=== PATIENT | male | born 1975 | race Caucasian/White ===

== ENCOUNTER 2019-01-28 18:09 | Observation (INO) | payer SELFPAY ==
[2019-01-28 18:36] LABS: #Eosinphils 0.2 thou/uL (0.0-0.7); #Lymphocytes 1.5 thou/uL (1.20-3.40); #Monocytes 0.5 thou/uL (0.11-0.59); #Neutrophils 4.9 thou/uL (1.40-6.50); %Basophils 0.3 % (0.0-1.0); %Eosinophils 3.1 % (0.0-10.0); %Lymphocytes 21.6 % (21.0-51.0); %Monocytes 6.3 % (0.0-10.0); %Neutrophils 68.7 % (42.0-75.0); Hemoglobin 11.7 g/dL (14.0-18.0); Mean Corpuscular HGB CONC 33.2 g/dL (32.0-36.0); Mean Corpuscular Hemoglobin 28.8 pg (27.0-31.0); Mean Corpuscular Volume 86.8 fL (78.0-98.0); Mean Platelet Volume 5.5 fL (7.4-10.4); Platelet Count 421 thou/uL (130-400); RBC Distribution Width 11.8 % (11.5-14.5); Red Blood Cell (RBC) Count 4.05 mill/uL (4.70-6.10); White Blood Cell (WBC) Count 7.1 thou/uL (4.8-10.8)
[2019-01-28] MEDS ORDERED: Nitroglycerin 0.4 MG TAB 1 EACH ONE (18:36)
[2019-01-28] MEDS ORDERED: Nitroglycerin 2% Ointment 1 INCH/1 GM Packet ONE (18:36)
[2019-01-28] MEDS ORDERED: Aspirin Chewable 81 MG TAB ONE (18:36)
--- NOTE | 2019-01-28 18:36 | RAD ---
Exam: Chest one view HISTORY:Chest pain Comparison: None FINDINGS: Cardiac silhouette: Normal Aorta: Unremarkable Pulmonary vessels: Normal Costophrenic angles: Clear LUNGS: No masses or consolidation. Pneumothorax: None Osseous abnormalities: None IMPRESSION: No acute cardiopulmonary process.
[2019-01-28 18:56] LABS: ALT (SGPT) 22 U/L (8-55); AST (SGOT) 20 U/L (5-34); Albumin 4.1 g/dL (3.5-5.0); Alkaline Phosphatase 88 U/L (40-110); Anion Gap 12 mmol/L (10-20); BUN (Urea Nitrogen) 12 mg/dL (8.9-20.6); Bilirubin, Total 0.3 mg/dL (0.2-1.2); CK (CPK) 94 U/L (30-200); Calc. Creatinine Clearance 0 mL/min (70-130); Calcium 9.3 mg/dL (7.8-10.44); Carbon Dioxide 27 mmol/L (22-29); Chloride 107 mmol/L (98-107); Estimated GFR-MDRD Greater than 90; Globulin 3.2 g/dL (2.4-3.5); Glucose 111 mg/dL (70-105); Potassium 4.3 mmol/L (3.5-5.1); Protein, Total 7.3 g/dL (6.0-8.3); Sodium 142 mmol/L (136-145)
[2019-01-28] MEDS ORDERED: Morphine 4 MG/ML VIAL ONE (19:33)
[2019-01-28] MEDS ORDERED: Ondansetron PF 4 MG/2 ML Vial ONE (19:33)
--- NOTE | 2019-01-28 20:43 | PDOC.FPRHP ---
- History of Present Illness Chief Complaint: Chest pain History of Present Illness: 43-year-old male smoker, with a past medical history of an NM in 2015, requiring to stent placement, hypertension, and hyperlipidemia. Presented to the ER from out of town with chest pain. The patient reported chest pain that started earlier this afternoon while on a bus traveling back to [place]. This chest pain was centrally located, radiating down the left arm and left jaw. Associated with the chest pain was nausea, diaphoresis, and shortness of breath intermittent. Patients chest pain was constant, rated an eight out of 10 and intensity, and pressure like in character. Patient denied any vomiting or heartburn/indigestion feelings. The chest pain came on at rest, was worsened by nothing, and alleviated by two nitro that he took before coming to the ER. When I evaluated the patient in the emergency department he rated the chest pain at two out of 10. Three weeks ago the patient was hospitalized in [place], [place], for similar symptoms. He was found to have an elevated troponin which trended down. The patient left AMA because his grandmother that night. He was scheduled to receive a Cath that next morning, but left before having it performed. Patient states he never followed up after this incident. Pt reports a stress test with reaction to adenosine causing hives and "terrible feeling," that he does not want to undergo again. Patient was given three nitroglycerin, 325 aspirin along with morphine in the emergency department which alleviated his chest pain. EKG showed sinus tachycardia and his initial troponin was 0.027. Neg chest x-ray. - Allergies/Adverse Reactions Allergies Allergy/AdvReac Type Severity Reaction Status Date / Time adenosine Allergy Short of Verified 01/28/19 22:08 Breath fentanyl Allergy Severe Verified 01/28/19 22:08 Hives Penicillins Allergy Hives Verified 01/28/19 22:08 - Home Medications Medication Instructions Recorded Confirmed Type Aspirin [Adult Low Dose Aspirin EC] 81 mg PO DAILY 01/28/19 01/28/19 History Atorvastatin Calcium [Lipitor] 20 mg PO HS 01/28/19 01/28/19 History Cyclobenzaprine [Flexeril] 10 mg PO TID PRN 01/28/19 01/28/19 History Metoprolol Tartrate [Lopressor] 25 mg PO BID 01/28/19 01/28/19 History Pantoprazole [Protonix] 40 mg PO BID 01/28/19 01/28/19 History oxyCODONE HCl/Acetaminophen 1 - 2 tablet PO Q4HR PRN 01/28/19 01/28/19 History [Percocet] - History PMHx: CAD with an NM in 2014 (X2 stent placements), GERD, HTN, HLD, CHF with reduced EF, ABDIEL, Protal vein thrombosis (X2 episodes one 5 yrs ago and the other 10 years ago, was on lovenox for a short period after both episodes) PSHx: cholecystectomy in 2016, R inguinal hernia repair as a child FHx: Father dies of NM at age 52, Grandmother CAD and lunch CA, Grandfather brain CA Social: Smokes 1 PPD for the past 5 years. Smoked up to 4 ppd for 15 years before that. Denies etoh or drug use. Works in [employer]. - Review of Systems General: denies: fever/chills, weight/appetite/sleep changes ENT: denies: nasal congestion Respiratory: reports: shortness of breath, exercise intolerance. denies: cough Cardiovascular: reports: chest pain, palpitation, edema, paroxysmal nocturnal dyspnea, orthopnea (immediately after lying flat.) Gastrointestinal: reports: nausea. denies: vomiting, diarrhea, abdominal pain, GI bleeding Skin: denies: rashes Musculoskeletal: reports: pain (chronic low back pain), arthritis/arthralgias ( chronic knee pain) Neurological: denies: syncope, seizure - Vital signs BP: 116/70 HR: 88 RR: 18 Tmax: 98.2 Pox: 99% on RA Wt: 128 kg - Physical Exam Constitutional: NAD, awake, alert and oriented, well developed HEENT: normocephalic and atraumatic, PERRLA, EOMI, conjunctiva clear, no scleral icterus, grossly normal vision, grossly normal hearing, MMM, oropharynx clear Neck: supple, FROM, trachea midline, no LAD, no JVD Chest: no-tender to palpation, no lesions Heart: RRR, normal S1/S2 (distant, but audible heart sounds.), no murmurs/rubs/ gallops, pulses present -Heart: BLE 2+ pitting edema Lungs: CTAB (deminished breath sounds thorughout all lung de dios.), no respiratory distress, good air movement, no rales/rhonchi, no wheezing Abdomen: soft, non-tender, bowel sounds present, no masses/distention -Abdomen: obese. Musculoskeletal: normal structure, normal tone, ROM grossly normal Neurological: no focal deficit, normal sensation Skin: no rash/lesions, good turgor, capillary refill <2 seconds, no jaundice Heme/Lymphatic: no unusual bruising or bleeding, no purpura, no petechia, no LAD Psychiatric: normal mood and affect, good judgment and insight, intact recent and remote memory FMR H&P: Results - Labs Result Diagrams: 01/28/19 18:28 01/28/19 18:28 Lab results: WBC 7.1 thou/uL (4.8-10.8) 01/28/19 18:28 Hgb 11.7 g/dL (14.0-18.0) L 01/28/19 18:28 Hct 35.2 % (42.0-52.0) L 01/28/19 18:28 MCV 86.8 fL (78.0-98.0) 01/28/19 18:28 Plt Count 421 thou/uL (130-400) H 01/28/19 18:28 Neutrophils % 68.7 % (42.0-75.0) 01/28/19 18:28 Sodium 142 mmol/L (136-145) 01/28/19 18:28 Potassium 4.3 mmol/L (3.5-5.1) 01/28/19 18:28 Chloride 107 mmol/L (98-107) 01/28/19 18:28 Carbon Dioxide 27 mmol/L (22-29) 01/28/19 18:28 BUN 12 mg/dL (8.9-20.6) 01/28/19 18:28 Creatinine 0.78 mg/dL (0.7-1.3) 01/28/19 18:28 Glucose 111 mg/dL (70-105) H 01/28/19 18:28 Calcium 9.3 mg/dL (7.8-10.44) 01/28/19 18:28 Total Bilirubin 0.3 mg/dL (0.2-1.2) 01/28/19 18:28 AST 20 U/L (5-34) 01/28/19 18:28 ALT 22 U/L (8-55) 01/28/19 18:28 Alkaline Phosphatase 88 U/L (40-110) 01/28/19 18:28 Creatine Kinase 94 U/L (30-200) 01/28/19 18:28 Serum Total Protein 7.3 g/dL (6.0-8.3) 01/28/19 18:28 Albumin 4.1 g/dL (3.5-5.0) 01/28/19 18:28 Laboratory Tests 01/28/19 01/28/19 01/28/19 18:28 18:28 18:28 Hgb 11.7 L Hct 35.2 L Troponin I 0.027 B-Natriuretic Peptide 17.5 01/28/19 21:26 Hgb Hct Troponin I 0.017 B-Natriuretic Peptide - EKG Interpretation EKG: Sinus Tach at 102 bpm. - Radiology Interpretation Chest x-ray Status: report reviewed by me (no acute cardiopulmonary process) FMR H&P: A/P - Problem List (1) Stable angina Current Visit: Yes Status: Acute Code(s): I20.8 - OTHER FORMS OF ANGINA PECTORIS (2) ABDIEL (obstructive sleep apnea) Current Visit: Yes Status: Chronic Code(s): G47.33 - OBSTRUCTIVE SLEEP APNEA (ADULT) (PEDIATRIC) (3) CAD (coronary artery disease) Current Visit: Yes Status: Chronic Code(s): I25.10 - ATHSCL HEART DISEASE OF [place] CORONARY ARTERY W/O ANG PCTRS (4) HTN (hypertension) Current Visit: Yes Status: Chronic Code(s): I10 - ESSENTIAL (PRIMARY) HYPERTENSION (5) GERD (gastroesophageal reflux disease) Current Visit: Yes Status: Chronic Code(s): K21.9 - GASTRO-ESOPHAGEAL REFLUX DISEASE WITHOUT ESOPHAGITIS (6) CHF (congestive heart failure) Current Visit: Yes Status: Chronic Code(s): I50.9 - HEART FAILURE, UNSPECIFIED (7) HLD (hyperlipidemia) Current Visit: Yes Status: Chronic Code(s): E78.5 - HYPERLIPIDEMIA, UNSPECIFIED (8) Normocytic anemia Current Visit: Yes Status: Chronic Code(s): D64.9 - ANEMIA, UNSPECIFIED - Plan 43 y/o M admitted to [facility] for further evaluation and treatment of Typical Chest Pain to rule out ACS. 1. Stable Angina - typical chest pain, central, pressure in character, radiates L arm/jaw, alleviated with nitro - TTE ordered, pt reports last echo 2 years ago. 35% EF - Pt reports allergy to adenosine with hives and palpitations. Will further discuss risk, benefit ration of Cardiolyte stress test - Trend trops. 1st trop 0.027 - EKG sinus Tach at 102 bpm. - PRN nitro, 325 mg ASA daily - Heart Score of 4 - No current CP, will consider heparin drip if CP returns - Possible Stress Test imaging if pt can tolerate procedure due to allergy to adenosine and OA or knee/DJD of back. 2. Hx of CAD, S/P 2 stents - May 2014, [place] - continue ASA, hold metoprolol 3. Hx of CHF - TTE ordered here. Hx of reduced EF - Prior EF of 35%, X2 years ago per patient. - Hold metoprolol until decision made for stress test imaging 4. Hx of HTN, well controlled - BP 116/70 - Only on metoprolol, stopped lisinopril 2/2 dry cough SE. 5. Hx of ABDIEL - CPAP QHS 6. GERD - Pt has a hx of GERD, ordered pepcid bid 7. Hx of HLD - Continue lipitor 20 mg daily 8. Normocytic Anemia - Ordered Iron, B12, Folate, TIBC and ferritin for workup. Code Status: full code DVT ppx: SCD's Diet: NPO at midnight Dispo: Admitted to tele obs for ACS rule out. Anticipate <2 days FMR H&P: Upper Level - Pertinent history 43 y/o M PMHx CAD, ABDIEL, HTN, HLD presents to the ED with chest pain. He reports he was on a bus and started having substernal chest pain radiating to his left neck and arm with associated diaphoresis. He took two of his nitro and they helped a little, but did not fully resolve the pain. By the time he got to the ED he was still having mild pain and this resolved completely with the nitro paste. He reports a prior h/o NM and has had stress tests before, but had a negative reaction to the adenosine so he would not like that again. He reports a h/o CHF with last echo about 2 years ago showing EF around 35%. He reports he has to sleep on 4 pillows at night and he has PND at times. - Pertinent findings Vitals: BP: 117/78, Pulse: 104, Resp: 22, Pain: 6, O2 sat: 100 on Room Air, Temp 98.2 PE: Gen - alert, oriented, NAD CV - RRR, no murmurs Lungs - CTAB, no wheezes Abd - protuberant, soft, NTTP Ext - trace pitting edema to mid-jade bilaterally Labs: Hb 11.7, Platelet 421, Trop 0.027, CXR - no acute process - Plan Date/Time: 01/28/192042 I, Ekta Mariee MD, PGY-3, have evaluated this patient and agree with findings/ plan as outlined by management internship resident. Pertinent changes/additions are listed here. 1. Anginal chest pain Pt with several risk factors and history concerning for cardiac cause. EKG with sinus tachycardia. Heart score 3. Initial troponin negative. -Will obs on telemetry -Trend trops -NPO after midnight and consider stress vs cardiology consult if pt unable to tolerate stress test -Echo -Aspirin -Nitro prn -FLP 2. CHF Pt reports EF 35% 2 years ago. Currently having symptoms that are likely 2/2 CHF -Will repeat echo -Continue home meds, pt reports no longer on ACEi due to cough, will consider ARB pending echo results 3. ABDIEL -Continue home CPAP 4. HTN -Continue home meds 5. GERD -Continue home meds 6. 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
[2019-01-28] MEDS ORDERED: Nitroglycerin 0.4 MG TAB (25 Tab Bottle) SL PRN (21:17)
[2019-01-28 21:55] VITALS: BMI 39.4
[2019-01-28 21:57] LABS: Troponin I 0.017 ng/mL (< 0.028)
[2019-01-28] MEDS ORDERED: Ondansetron ODT 4 MG TAB PO PRN (22:33)
[2019-01-28] MEDS: Cyclobenzaprine 10 MG TAB PO PRN ×2 (23:32→23:35)
[2019-01-28] MEDS: Nicotine 14 MG PATCH TD SCH (23:33)
[2019-01-29 01:10] LABS: Troponin I 0.014 ng/mL (< 0.028)
[2019-01-29 06:08] LABS: Anion Gap 12 mmol/L (10-20); BUN (Urea Nitrogen) 15 mg/dL (8.9-20.6); Calc. Creatinine Clearance 246 mL/min (70-130); Calcium 8.4 mg/dL (7.8-10.44); Carbon Dioxide 23 mmol/L (22-29); Cardiac Risk 2.9 (Less than 4.5); Chloride 109 mmol/L (98-107); Cholesterol 96 mg/dl (< 200 Desired); Estimated GFR-MDRD Greater than 90; Glucose 100 mg/dL (70-105); HDL Cholesterol 33 mg/dL (>60 Neg Risk); LDL Cholesterol, Calculated 51 mg/dL; Potassium 3.9 mmol/L (3.5-5.1); Sodium 140 mmol/L (136-145); Triglycerides 58 mg/dL (Less than 150)
[2019-01-29 06:26] LABS: Iron 29 ug/dL (65-175); Iron Binding Capacity, Total 315 mcg/dL (261-462)
[2019-01-29 06:52] LABS: Ferritin 34.95 ng/mL (22-322)
--- NOTE | 2019-01-29 07:24 | PDOC.FM ---
- Subjective Subjective: Doing well this morning, no acute events overnight. CP completely resolved. Denies any SOB, LE edema, n/v, fever/chills, d/c. Ambulating and voiding without difficulty. States he cannot have stress 2/2 adenosine allergy and cannot have exercise stress 2/2 DJD. Does not have travel rn or or PCP back in [place]. - Objective MAR Reviewed: Yes Vital Signs & Weight: Vital Signs (12 hours) Temp Pulse Resp BP Pulse Ox 01/29/19 04:34 98.2 F 60 14 96/52 L 96 01/28/19 23:02 98.1 F 91 16 122/70 98 01/28/19 21:34 98.2 F 102 H 20 133/58 L 99 Weight Weight 128.14 kg I&O: 01/28/19 01/29/19 01/30/19 06:59 06:59 06:59 Intake Total 480 Balance 480 Result Diagrams: 01/29/19 07:20 01/29/19 05:28 EKG Reviewed by me: Yes (Tele: NSR, no acute events) Phys Exam - Physical Examination Constitutional: NAD (resting comfortably) HEENT: PERRLA, moist MMs Neck: supple Respiratory: no wheezing, no rales, no rhonchi, clear to auscultation bilateral Cardiovascular: RRR, no significant murmur, no rub Gastrointestinal: soft, non-tender, no distention, positive bowel sounds Musculoskeletal: no edema Neurological: non-focal Psychiatric: normal affect, A&O x 3 Dx/Plan (1) Stable angina Code(s): I20.8 - OTHER FORMS OF ANGINA PECTORIS Status: Acute (2) CAD (coronary artery disease) Code(s): I25.10 - ATHSCL HEART DISEASE OF [place] CORONARY ARTERY W/O ANG PCTRS Status: Chronic (3) CHF (congestive heart failure) Code(s): I50.9 - HEART FAILURE, UNSPECIFIED Status: Chronic (4) GERD (gastroesophageal reflux disease) Code(s): K21.9 - GASTRO-ESOPHAGEAL REFLUX DISEASE WITHOUT ESOPHAGITIS Status: Chronic (5) HLD (hyperlipidemia) Code(s): E78.5 - HYPERLIPIDEMIA, UNSPECIFIED Status: Chronic (6) HTN (hypertension) Code(s): I10 - ESSENTIAL (PRIMARY) HYPERTENSION Status: Chronic (7) Normocytic anemia Code(s): D64.9 - ANEMIA, UNSPECIFIED Status: Chronic (8) ABDIEL (obstructive sleep apnea) Code(s): G47.33 - OBSTRUCTIVE SLEEP APNEA (ADULT) (PEDIATRIC) Status: Chronic - Plan Plan: 43 y/o M h/o CAD s/p stents, CHF with EF 35%. HTN, HLD admitted to Tele obs for further evaluation and treatment of Typical Chest Pain to rule out ACS. #Typical Chest pain - central, pressure, radiates L arm/jaw, alleviated with nitro - sxs currently resolved - TTE ordered, pt reports last echo 2 years ago. 35% EF - Pt reports allergy to adenosine with hives and palpitations. States he cannot have exercise stress 2/2 DJD. - trops neg x3 - EKG sinus Tach at 102 bpm. Tele no acute events - PRN nitro, 325 mg ASA daily - Heart Score of 4 - Adriana, Dr. Crocker, consulted, apprec recs #Hx of CAD, S/P 2 stents - May 2014, [place] - continue ASA, hold metoprolol, awaiting cards recs #HFrEF - TTE pending - Prior EF of 35%, X2 years ago per patient. - Hold metoprolol until decision made for stress test imaging #Hx of HTN, well controlled - BP 116/70 - Only on metoprolol, held for stress, stopped lisinopril 2/2 dry cough SE. Consider ARB if tolerated. #Hx of ABDIEL - CPAP QHS #GERD - Pt has a hx of GERD, pepcid bid #HLD -Continue lipitor 20 mg daily #Anemia of chronic disease - ferritin 34.95, TIBC 315, Fe 39. B12 224, folate 6.7 - will replace folate, likely anemia of chronic disease Code Status: full code DVT ppx: SCD's Diet: NPO for possible stress, HH otherwise IVF: SL Dispo: Admitted to tele obs for ACS rule out. Echo today. Cards consulted, apprec recs. Anticipate hospitalization <2 days.
[2019-01-29 07:28] LABS: #Eosinphils 0.3 thou/uL (0.0-0.7); #Lymphocytes 1.3 thou/uL (1.20-3.40); #Monocytes 0.5 thou/uL (0.11-0.59); #Neutrophils 4.6 thou/uL (1.40-6.50); %Basophils 0.1 % (0.0-1.0); %Eosinophils 4.6 % (0.0-10.0); %Lymphocytes 19.2 % (21.0-51.0); %Monocytes 7.5 % (0.0-10.0); %Neutrophils 68.5 % (42.0-75.0); Mean Corpuscular HGB CONC 32.5 g/dL (32.0-36.0); Mean Corpuscular Hemoglobin 28.2 pg (27.0-31.0); Mean Corpuscular Volume 86.7 fL (78.0-98.0); Mean Platelet Volume 5.6 fL (7.4-10.4); Platelet Count 379 thou/uL (130-400); RBC Distribution Width 11.9 % (11.5-14.5); Red Blood Cell (RBC) Count 3.55 mill/uL (4.70-6.10); White Blood Cell (WBC) Count 6.8 thou/uL (4.8-10.8)
[2019-01-29 07:39] LABS: Hemoglobin A1c 5.1 % (4.0-6.0)
[2019-01-29] MEDS: Aspirin 325 mg Enteric Coated Tablet PO SCH (09:33)
[2019-01-29] MEDS: Cyclobenzaprine 10 MG TAB PO PRN ×2 (09:33→22:15)
--- NOTE | 2019-01-29 16:40 | HP ---
Please see the history and physical done by Dr. Sandoval, for which I agree as well as progress note done by Dr. Boyle from today, for which I agree. The patient is seen, evaluated, discussed, and examined with the residents by bedside. HISTORY OF PRESENT ILLNESS: This is a 43-year-old with known coronary artery disease including an DC and stents placed in 2014 and has hypertension and hyperlipidemia. The patient was passing through town on a bus, started having intense chest pain, very similar to what he had 2 weeks ago, and came to the ER. Troponin has not been elevated. He was supposed to have a heart cath at a hospitalization a couple of weeks ago and it sounds like could not have it done or left against medical advice and was chest pain free until yesterday. He did have some shortness of breath, everything responded to aspirin, and had nitroglycerin. Currently pain free with nitroglycerin patch on. ALLERGIES, HOME MEDICATIONS, PAST MEDICAL HISTORY, PAST SURGICAL HISTORY, SOCIAL HISTORY, REVIEW OF SYSTEMS: All per the residents' history and physical. PHYSICAL EXAMINATION: VITAL SIGNS: Afebrile. Vital signs are stable. GENERAL: No apparent distress. Breathing comfortably. Overweight. Central obesity. ENT: Conjunctivae not pale. Sclerae anicteric. Moist mucosa. NECK: No lymphadenopathy, bruits, or thyromegaly. CHEST: Clear. HEART: Regular rate and rhythm. ABDOMEN: Benign. EXTREMITIES: No edema. LABORATORY DATA: Initial blood workup, hemoglobin was low at 11.7. Sugar was slightly elevated at 111. Troponin I has been fairly normal. BNP was also normal. ASSESSMENT: 1. Coronary artery disease with very worrisome chest pain. 2. Hypertension. 3. Hyperlipidemia. 4. Obesity. PLAN: Plan is to get Cardiology involved. Apparently, the patient has had and states that his knees are too bad to go do a stress test, so may need to proceed to the heart catheterization. In the meantime, we will keep him on the nitroglycerin, watch him closely, and treat the symptoms and certainly be ready if things decompensate. Of note, there was some question if maybe he had an ejection fraction of 35% in the past. His BNP was fairly normal, so probably get an echocardiogram ordered on him. Job ID: [id number]
[2019-01-29] MEDS: Atorvastatin Calcium 20 MG TAB PO SCH (20:11)
--- NOTE | 2019-01-29 20:42 | CON ---
DATE OF CONSULTATION: 01/29/2019 INDICATION FOR CONSULTATION: A 43-year-old patient with a history of coronary artery disease by history, he said he had a myocardial infarction in the past. We were asked to see the patient due to his chest discomfort. 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 He continues to smoke a pack a day. At least for the last 20 years, he has smoked up to 4 packs a day. He denies any alcohol use. He said in 2014, he suffered a myocardial infarction and required angioplasty. There was no stent placed. He also has a history of hypertension and hyperlipidemia. He was seen about 3 weeks ago in [place] at the emergency room, apparently at [facility] in [place], [place]. At that time, he was complaining of some chest discomfort, which radiated to the left jaw into the left arm. He was scheduled to undergo a cardiac catheterization, but he left prior to having the procedure done, saying that his grandmother had and so he left. At this time, he was en route apparently back on his way to [place], when he got rerouted on his [email or web address] bus and then he started developing chest pain, and he stopped here due to the history and got off the bus here due to chest pain. He describes the pain again as being similar to what he had when he had his angioplasty performed in the past. This was in 2014. His EKG is unremarkable. There are no EKG changes. His enzymes are negative. He had an echocardiogram performed today, which shows an ejection fraction of 50% to 55%. He had been told in the past he had an ejection fraction of about 35% on an echocardiogram approximately 2 or 3 years ago back in 2017 by his family physician. He has not seen a cultural anthropology professor apparently since his angioplasty in 2014 and typically he does not take very good care of himself. He also has anemia with a hemoglobin of 10 of uncertain etiology. Otherwise, at this time, he is pain-free and appears to be doing relatively well. He says that he took 2 nitroglycerin prior to coming to the emergency room and apparently that did not relieve his pain. He was refused to undergo stress testing, saying that he has had a reaction to the adenosine or anything of that sort. He refuses to take a stress test. He was given 3 nitroglycerin in the emergency room with aspirin and morphine and apparently his pain resolved. His enzymes have been negative. There is no indication they have been negative x4. An EKG has remained unremarkable. There was no indication in the EKG of any prior myocardial infarction. PAST MEDICAL HISTORY: Significant for the angioplasty, uncertain as to which vessel this was. There are different records according to the notes that say he did have some stent placed, but when I asked him specifically, he said he did not have any stent placement. He did not have a portal vein thrombosis in the past. He has history of hypertension, hyperlipidemia, has gastroesophageal reflux disease. He has been told that he had a cardiomyopathy with decrease in ejection fraction. He has obstructive sleep apnea. He has had a cholecystectomy and a right inguinal hernia repair. FAMILY HISTORY: His father had myocardial infarction at age 52. SOCIAL HISTORY: He continues to smoke. He is single. He has no children. He denies any alcohol use, but has smoked for the last 20 years, at least a pack a day and sometimes up to 4 packs a day in the past. He said he has not smoked that much in the last several years. REVIEW OF SYSTEMS: He mainly complained of some chest discomfort occasionally. He has occasional lower extremity edema. No neurological complaints. No complaints. He does have some complaints, if not, of indigestion with gastroesophageal reflux disease, and he continues to smoke. HEENT, he did not have any significant complaints. MEDICATIONS: Include; 1. Aspirin. 2. Atorvastatin. 3. Flexeril. 4. Lopressor. 5. Protonix. 6. Oxycodone with Tylenol or Percocet due to chronic back pain or knee pain. PHYSICAL EXAMINATION: GENERAL: Reveals a well-developed, well-nourished gentleman who is in no acute distress at this time. VITAL SIGNS: Blood pressure is 130/75, heart rate is 62 and regular, respiratory rate is 20, he is afebrile, and O2 saturation 95%. HEENT: Unremarkable. Carotid pulses are present. There is no JVD. There are no significant bruits noted. CHEST: Clear to auscultation. There are no rales, rhonchi, or wheezing noted. CARDIOVASCULAR: Reveals a regular rate and rhythm with normal S1 and S2. I cannot hear an S3 nor an S4. There are no significant murmurs, heaves, thrills, bruits, or rubs noted. ABDOMEN: Shows morbid obesity with positive bowel sounds. No organomegaly or masses are noted. EXTREMITIES: Femoral pulses are present. No clubbing, cyanosis, or edema at this time. He does have large extremities, but no edema was noted. Pedal pulses are present, but are somewhat decreased. NEUROLOGIC: The patient appears to be intact. I do not elicit any gross focal motor deficits. He is able to ambulate without difficulties. LABORATORY DATA: Shows a hemoglobin today of 10, previously on admission I believe when he was seen in the emergency room, it was listed as 11.7; WBC of 6.8; hematocrit is 30.8; platelet count 379,000. Potassium is 3.9, BUN 15, creatinine 0.71, blood sugar was 100. LDL was 51. His iron level is 29. EKG shows a normal sinus rhythm with no acute changes. Chest x-ray was also unremarkable. Echocardiogram shows an ejection fraction of 50% to 55%, but no specific wall motion abnormalities. IMPRESSION: 1. At this time, we can either opt to continue to follow this patient or if he continues to have more chest discomfort can consider cardiac catheterization tomorrow. He is not an acute patient at this time. It would be better if the patient would undergo some type of stress testing, however, he refuses to do so. The only option would be to discharge the patient for him to follow up with his physicians in [place] or to proceed with cardiac catheterization as a definitive tool to rule out evidence of underlying coronary artery disease. We will make that decision based on how the patient progresses today. 2. History of hypertension. This is under good control at this time. 3. History of anemia of uncertain etiology. He has not noticed any blood in his stools or any other loss of blood. 4. Hypercholesterolemia, which is under good control at this time. 5. History of tobacco abuse. He will strongly be advised to stop smoking. We would consider doing stool guaiacs to determine whether or not the patient is having any evidence of gastrointestinal bleeding. Job ID: [id number]
[2019-01-29] MEDS: Nicotine 14 MG PATCH TD SCH (22:15)
--- NOTE | 2019-01-30 05:24 | PDOC.FM ---
- Subjective Subjective: Pt doing well this morning. No acute events overnight. No return of CP. No SOB, n/v, dizziness/lightheadedness, fever/chills. Tolerating PO well, ambulating without difficulty, multiple voids and BMs. Eagerly awaiting lexiscan stress this morning and cards recs. - Objective MAR Reviewed: Yes Vital Signs & Weight: Vital Signs (12 hours) Temp Pulse Resp BP Pulse Ox 01/30/19 04:18 97.7 F 83 16 124/63 99 01/29/19 19:40 98.7 F 76 16 124/63 100 Weight Weight 128.14 kg I&O: 01/28/19 01/29/19 01/30/19 06:59 06:59 06:59 Intake Total 480 850 Output Total 600 Balance 480 250 Result Diagrams: 01/29/19 07:20 01/29/19 05:28 EKG Reviewed by me: Yes (Tele: NSR no acute events) Phys Exam - Physical Examination Constitutional: NAD (resting comfortably) HEENT: moist MMs Neck: supple Respiratory: no wheezing, no rales, no rhonchi, clear to auscultation bilateral Cardiovascular: RRR, no significant murmur, no rub Gastrointestinal: soft, non-tender, no distention, positive bowel sounds Musculoskeletal: no edema, pulses present Neurological: non-focal, normal sensation, moves all 4 limbs Psychiatric: normal affect, A&O x 3 Dx/Plan (1) Stable angina Code(s): I20.8 - OTHER FORMS OF ANGINA PECTORIS Status: Acute (2) CAD (coronary artery disease) Code(s): I25.10 - ATHSCL HEART DISEASE OF [place] CORONARY ARTERY W/O ANG PCTRS Status: Chronic (3) CHF (congestive heart failure) Code(s): I50.9 - HEART FAILURE, UNSPECIFIED Status: Chronic (4) GERD (gastroesophageal reflux disease) Code(s): K21.9 - GASTRO-ESOPHAGEAL REFLUX DISEASE WITHOUT ESOPHAGITIS Status: Chronic (5) HLD (hyperlipidemia) Code(s): E78.5 - HYPERLIPIDEMIA, UNSPECIFIED Status: Chronic (6) HTN (hypertension) Code(s): I10 - ESSENTIAL (PRIMARY) HYPERTENSION Status: Chronic (7) Normocytic anemia Code(s): D64.9 - ANEMIA, UNSPECIFIED Status: Chronic (8) ABDIEL (obstructive sleep apnea) Code(s): G47.33 - OBSTRUCTIVE SLEEP APNEA (ADULT) (PEDIATRIC) Status: Chronic - Plan Plan: 43 y/o M h/o CAD s/p stents, CHF with EF 35%. HTN, HLD admitted to Tele obs for further evaluation and treatment of Typical Chest Pain to rule out ACS. #Stable angina - typical CP sxs - resolved since admission - Echo EF 50-55% - Pt reports allergy to adenosine with hives and palpitations. States he cannot have exercise stress 2/2 DJD. - trops neg x3 - EKG sinus Tach, Tele no acute events - PRN nitro, 325 mg ASA daily - Heart Score of 4 - Cards, Dr. Crocker, consulted, will proceed with lexiscan stress this am and await results and further recs, apprec assistance - recent hospitalization in [place], [place]. Will obtain records. - Counseled on establishing with PCP in hometown and need for cardiology f/u as outpatient #Hx of CAD, S/P balloon stenting - May 2014, [place] - continue ASA, hold metoprolol until after stress, awaiting cards recs #CHF - Echo 50-55%, VSS, no dyspnea - Prior EF of 35%, X2 years ago per patient. - Hold metoprolol until after stress #Hx of HTN, well controlled - BP 120s/60s. Holding metoprolol for stress. Will restart after. Will consider ARB if tolerated, stopped lisinopril 2/2 dry cough. #Hx of ABDIEL - CPAP QHS #GERD - pepcid bid #HLD - home lipitor 20 mg daily #Anemia of chronic disease - ferritin 34.95, TIBC 315, Fe 39 B12 224, folate 6.7 - will replace folate, likely anemia of chronic disease - CBC pending this AM - FOBT pending, denies any melenotic stools or other acute blood loss Code Status: full code DVT ppx: SCD's Diet: NPO for stress, HH after IVF: SL Dispo: Admitted to tele obs for ACS rule out. Stress today. Cards consulted, apprec recs. Anticipate hospitalization <48hrs.
[2019-01-30] MEDS ORDERED: Regadenoson 0.4 MG/5 ML SYRINGE ONE (09:39)
[2019-01-30] MEDS: Folic Acid 1 MG TAB PO SCH (11:13)
[2019-01-30] MEDS: Aspirin 325 mg Enteric Coated Tablet PO SCH (11:13)
[2019-01-30 12:13] LABS: #Eosinphils 0.4 thou/uL (0.0-0.7); #Lymphocytes 1.7 thou/uL (1.20-3.40); #Monocytes 0.5 thou/uL (0.11-0.59); %Basophils 0.1 % (0.0-1.0); %Eosinophils 5.3 % (0.0-10.0); %Lymphocytes 22.2 % (21.0-51.0); %Neutrophils 65.4 % (42.0-75.0); Hemoglobin 11.7 g/dL (14.0-18.0); Mean Corpuscular HGB CONC 32.4 g/dL (32.0-36.0); Mean Corpuscular Hemoglobin 28.2 pg (27.0-31.0); Mean Corpuscular Volume 87.2 fL (78.0-98.0); Mean Platelet Volume 5.6 fL (7.4-10.4); Platelet Count 460 thou/uL (130-400); RBC Distribution Width 11.8 % (11.5-14.5); Red Blood Cell (RBC) Count 4.15 mill/uL (4.70-6.10); White Blood Cell (WBC) Count 7.7 thou/uL (4.8-10.8)
[2019-01-30] MEDS ORDERED: Lorazepam 2 MG/ML VIAL SLOW IVP PRN (12:18)
--- NOTE | 2019-01-30 12:31 | PRG ---
DATE OF SERVICE: 01/30/2019 Mr. Christianson is a 43-year-old man, who was admitted with chest pain. Recently while in [place], where he is from, he underwent a stress test that demonstrated possible ischemia. It was recommended at that time that he have a heart catheterization, but he left AMA because of the of a grandmother. He was traveling in this area when he again experienced some chest discomfort and was transferred to our ER. He will undergo stress testing here with possible following catheterization depending upon results of stress test. Job ID: [id number]
[2019-01-30 12:32] LABS: Anion Gap 10 mmol/L (10-20); BUN (Urea Nitrogen) 17 mg/dL (8.9-20.6); Calc. Creatinine Clearance 234 mL/min (70-130); Calcium 9.1 mg/dL (7.8-10.44); Carbon Dioxide 27 mmol/L (22-29); Chloride 106 mmol/L (98-107); Estimated GFR-MDRD Greater than 90; Glucose 79 mg/dL (70-105); Potassium 4.2 mmol/L (3.5-5.1); Sodium 139 mmol/L (136-145)
--- NOTE | 2019-01-30 14:47 | NM ---
NM Cardiac Stress W EF WF History: Chest pain. Coronary artery disease. Comparison: None Findings: Stress and rest performed after the intravenous administration of 30.3 and 9.2 mCi techneti um 99m sestamibi, respectively. There is mild reversal ischemia of the anterior wall and apex. Global hypokinesia with ejection fract ion of 41%. Impression: Mild reversal ischemia of the anterior wall and septum with global hypokinesia.
[2019-01-30] MEDS ORDERED: Communication Order-Pharmacy FS SCH (18:15)
--- NOTE | 2019-01-30 18:18 | PDOC.CPN ---
- Subjective Date: 01/30/19 Time: 18:15 - Review of Systems General: denies: fever/chills, fatigue Respiratory: denies: cough, congestion Cardiovascular: denies: chest pain, palpitation, edema Gastrointestinal: denies: nausea, abd pain Musculoskeletal: denies: pain, swelling Neurological: denies: numbness - Objective Allergies/Adverse Reactions: Allergies Allergy/AdvReac Type Severity Reaction Status Date / Time adenosine Allergy Short of Verified 01/28/19 22:08 Breath fentanyl Allergy Severe Verified 01/28/19 22:08 Hives Penicillins Allergy Hives Verified 01/28/19 22:08 Visit Medications: Current Medications Aspirin (Ecotrin) 81 mg PO DAILY [facility] Atorvastatin Calcium (Lipitor) 20 mg PO HS [facility] Last Admin: 01/29/19 20:11 Dose: 20 mg Cyclobenzaprine HCl (Flexeril) 10 mg PO TIDPRN PRN PRN Reason: Muscle Pain Last Admin: 01/29/19 22:15 Dose: 10 mg Folic Acid (Folvite) 1 mg PO DAILY [facility] Last Admin: 01/30/19 11:13 Dose: 1 mg Miscellaneous Information (Communication Order-Pharmacy) 0 each FS ONE [facility] Nicotine (Nicoderm Patch) 14 mg TD Q24HR [facility] Last Admin: 01/29/19 22:15 Dose: 14 mg Nitroglycerin (Nitrostat) 0.4 mg SL Q5MIN PRN PRN Reason: Chest Pain Ondansetron HCl (Zofran Odt) 4 mg PO Q6H PRN PRN Reason: Nausea/Vomiting Pantoprazole Sodium (Protonix) 40 mg PO BID [facility] Last Admin: 01/30/19 11:14 Dose: 40 mg Sodium Chloride (Flush - Normal Saline) 10 ml IVF PRN PRN PRN Reason: Saline Flush Vital Signs & Weight: Vital Signs Temp Pulse Resp BP Pulse Ox 01/30/19 15:48 97.9 F 97 18 135/69 100 01/30/19 11:15 97.8 F 99 18 157/86 H 100 01/30/19 07:32 97.7 F 68 18 120/56 L 97 Weight 279 lb 14.4 oz - Quality Measures Condition: Coronary Artery Disease CV meds: Beta Donta: Yes, SIL/ARB: Yes, Statin: Yes, ASA: Yes, Plavix/Effient/ Brilinta: Yes, Anticoagulant: Yes - Physical Exam HEENT: normocephaly Neck: supple neck, no bruit Cardiac: regular rate and rhythm, no murmur Lungs: clear to auscultation Neuro: grossly intact Abdomen: non-tender Extremities: no edema Musculoskeletal: normal range of motion - Labs Result Diagrams: 01/30/19 11:48 01/30/19 11:48 Troponin/CKMB Troponin I 0.014 ng/mL (< 0.028) 01/29/19 00:35 - Diagnostic Stress Test Status: report reviewed by me (mild reversible anterior ischemia.) - Assessment/Plan Assessment/Plan: 1. CAD. Hx. of prior PTCA, abnormal stress test. Plan for cath in AM. Procedure and risks explained to the pt. to include bleeding infection,MD,CVA,renal insuff. or . He agrees to proceed. Plan for cath with possible intervention in AM. 2. HTN: well controlled. 3. Dyslipidemia: continue statins. 4. Morbid obesity: advised to lose wt. 5. Tobacco abuse: advised to stop.
[2019-01-30] MEDS ORDERED: Metoprolol Tartrate 25 MG TAB PO SCH (21:00)
[2019-01-30] MEDS: Nicotine 14 MG PATCH TD SCH (21:38)
[2019-01-30] MEDS: Atorvastatin Calcium 20 MG TAB PO SCH (21:38)
[2019-01-31] MEDS: Folic Acid 1 MG TAB PO SCH (05:04)
[2019-01-31 06:10] LABS: Hemoglobin A1c 5.1 % (4.0-6.0)
--- NOTE | 2019-01-31 07:54 | PDOC.FM ---
- Subjective Subjective: Doing well this morning, no acute events overnight. No return of CP. Tolerating PO well. Discussed stress results with Dr. Crocker yesterday, plan for cardiac cath this morning. Denies any SOB, fever/chills, n/v, d/c. Ambulating well. - Objective MAR Reviewed: Yes Vital Signs & Weight: Vital Signs (12 hours) Temp Pulse Resp BP BP Pulse Ox 01/31/19 04:03 97.8 F 92 18 127/77 98 01/30/19 23:00 97.8 F 112 H 19 131/72 98 Weight Weight 132.313 kg I&O: 01/30/19 01/31/19 02/01/19 06:59 06:59 06:59 Intake Total 1810 3720 Output Total 600 Balance 1210 3720 Result Diagrams: 01/30/19 11:48 01/30/19 11:48 EKG Reviewed by me: Yes (NSR, no acute events) Phys Exam - Physical Examination Constitutional: NAD (resting comfortably in bed) HEENT: moist MMs Neck: supple Respiratory: no wheezing, no rales, no rhonchi, clear to auscultation bilateral Cardiovascular: RRR, no significant murmur, no rub Gastrointestinal: soft, non-tender, no distention, positive bowel sounds Musculoskeletal: no edema Neurological: non-focal Psychiatric: normal affect, A&O x 3 Dx/Plan (1) Stable angina Code(s): I20.8 - OTHER FORMS OF ANGINA PECTORIS Status: Acute (2) CAD (coronary artery disease) Code(s): I25.10 - ATHSCL HEART DISEASE OF [place] CORONARY ARTERY W/O ANG PCTRS Status: Chronic (3) CHF (congestive heart failure) Code(s): I50.9 - HEART FAILURE, UNSPECIFIED Status: Chronic (4) GERD (gastroesophageal reflux disease) Code(s): K21.9 - GASTRO-ESOPHAGEAL REFLUX DISEASE WITHOUT ESOPHAGITIS Status: Chronic (5) HLD (hyperlipidemia) Code(s): E78.5 - HYPERLIPIDEMIA, UNSPECIFIED Status: Chronic (6) HTN (hypertension) Code(s): I10 - ESSENTIAL (PRIMARY) HYPERTENSION Status: Chronic (7) Normocytic anemia Code(s): D64.9 - ANEMIA, UNSPECIFIED Status: Chronic (8) ABDIEL (obstructive sleep apnea) Code(s): G47.33 - OBSTRUCTIVE SLEEP APNEA (ADULT) (PEDIATRIC) Status: Chronic - Plan Plan: 43 y/o M h/o CAD s/p balloon stenting, HTN, HLD admitted to Tele obs for further evaluation and treatment of Typical Chest Pain to rule out ACS. #Stable angina - typical CP sxs - resolved since admission - Echo EF 50-55% - trops neg x3. EKG sinus Tach, Tele no acute events - PRN nitro, 325 mg ASA daily - Heart Score of 4 - Lexiscan demonstrated reversible ischemia of anterior wall and septum - Cards, Dr. Crocker, consulted, plan for cardiac cath this AM, apprec assistance - recent hospitalization in [place], [place]. Will obtain records. - Counseled on establishing with PCP in hometown and need for cardiology f/u as outpatient #Hx of CAD, S/P balloon stenting - May 2014, [place] - continue ASA, hold metoprolol until after stress - A1C 5.1 #CHF - Echo 50-55%, VSS, no dyspnea - Prior EF of 35%, X2 years ago per patient. - Hold metoprolol until after stress #Hx of HTN - BP 127/75 -> 157/86. Holding metoprolol for stress. Will restart after. Will consider ARB if tolerated, previously stopped lisinopril 2/2 dry cough. #Hx of ABDIEL - CPAP QHS #GERD - pepcid bid #HLD - home lipitor 20 mg daily #Anemia of chronic disease - ferritin 34.95, TIBC 315, Fe 39 B12 224, folate 6.7 - will replace folate, likely anemia of chronic disease - Hb stable at 11 - FOBT negative x2, denies any melenotic stools or other acute blood loss Code Status: full code DVT ppx: SCD's Diet: NPO for cath, HH after IVF: SL Dispo: Admitted to tele obs for ACS rule out. Stress positive. Cath this AM. Cards consulted, apprec recs.
[2019-01-31] MEDS ORDERED: Lidocaine 1% (PF) 30 ML VIAL ONE (08:48)
[2019-01-31] MEDS ORDERED: Aspirin 81 mg Enteric Coated Tablet PO SCH (09:00)
[2019-01-31] MEDS ORDERED: Heparin 10,000 UNITS/1 ML VIAL ONE (09:46)
[2019-01-31] MEDS ORDERED: Nitroglycerin 100MG/250ML BOT 250 ML ONE (09:46)
[2019-01-31] MEDS ORDERED: Verapamil 5 MG/2 ML VIAL ONE (09:46)
[2019-01-31] MEDS ORDERED: Midazolam HCl 2 mg/2 ml Vial ONE ×2 (09:48→10:10)
[2019-01-31] MEDS ORDERED: Morphine 2 MG/ML SYRINGE ONE (10:21)
--- NOTE | 2019-01-31 10:26 | PRG ---
DATE OF SERVICE: 01/31/2019 Mr. Christianson is taken for cardiac catheterization this morning. Further management will depend on results of the cardiac cath. Job ID: [id number]
[2019-01-31] MEDS ORDERED: Acetaminophen/Codeine 30-300mg Tablet PO PRN ×2 (10:46)
[2019-01-31] MEDS ORDERED: Nitroglycerin 0.4 MG TAB (25 Tab Bottle) SL PRN (10:46)
[2019-01-31] MEDS ORDERED: Sodium Chloride 0.9% 200 ML IV PRN (10:46)
[2019-01-31] MEDS ORDERED: Losartan 25 MG TAB PO SCH (12:00)
[2019-01-31 12:17] VITALS: BP 142/76; TEMP 97.5
[2019-01-31] MEDS ORDERED: Iopamidol 370 76% 100 ML VIAL ONE (13:00)
[2019-01-31] MEDS ORDERED: Iopamidol 370 76% 50 ML VIAL FS ONE (13:00)
--- NOTE | 2019-02-01 14:05 | DIS ---
DATE OF ADMISSION: 01/28/2019 DATE OF DISCHARGE: 01/31/2019 ADMITTING ATTENDING: Dr. Bryan Baldwin. DISCHARGE ATTENDING: Dr. Joce Guerra. CONSULTS: Dr. Crocker, Cardiology. PROCEDURES: 1. Chest x-ray on 01/28/2019 demonstrating no acute cardiopulmonary process. 2. Echocardiogram on 01/29/2019 demonstrating ejection fraction of 50% to 55%. Left atrium moderately dilated, normal aortic valve. 3. Nuclear medicine stress test on 01/30/2019 demonstrating mild reversible ischemia of the anterior wall and septum with global hypokinesis. 4. Cardiac cath on 01/31/2019 demonstrating 50% stenosis of the distal LAD. No stenosis of the left circumflex or right coronary artery. EF 55% to 60%. Recommended medical therapy with statin, beta-cabrera, and SIL inhibitor. PRIMARY DIAGNOSES: 1. Coronary artery disease. 2. Stable angina. SECONDARY DIAGNOSES: 1. Congestive heart failure with preserved ejection fraction. 2. Hypertension. 3. Obstructive sleep apnea. 4. Gastroesophageal reflux disease. 5. Hyperlipidemia. 6. Anemia of chronic disease. DISCHARGE MEDICATIONS: 1. Losartan 25 mg p.o. daily. 2. Folic acid 1 mg p.o. daily. 3. Aspirin 81 mg p.o. daily. 4. Atorvastatin 20 mg p.o. at bedtime. 5. Metoprolol tartrate 25 mg p.o. b.i.d. 6. Pantoprazole 40 mg p.o. b.i.d. 7. Flexeril 10 mg p.o. t.i.d. p.r.n. 8. Percocet 10/325 one to two tablets p.o. q.4 hours p.r.n. Discontinue medications: None. HISTORY OF PRESENT ILLNESS AND HOSPITAL COURSE: The patient is a 43-year-old smoker with past medical history of an IA in 2015 requiring balloon stenting, hypertension, hyperlipidemia, who presented to the ER from out of town with chest pain. The patient states that he was on the bus traveling back to [place] when he began to experience a substernal chest pain radiating down his left arm into his left jaw, associated with nausea, diaphoresis, shortness of breath, constant, rated 8/10 and pressure-like in nature. The pain was alleviated by 2 nitroglycerin taken before coming to the emergency room. In the emergency room, the patient was rated 2/10. The patient states that approximately 3 weeks ago, he was hospitalized in [place] for similar symptoms, found to have an elevated troponin which trended down. However, the patient left AMA due to family situations prior to receiving a scheduled cardiac catheterization. The patient states that he does not have a primary care physician and has not followed with a epic application coordinator since his IA in 2014. In the ED, he was given nitroglycerin, 325 mg aspirin, and morphine, which alleviated the chest pain. EKG showed sinus tachycardia and initial troponin was 0.027. Chest x-ray was negative. He is admitted for further evaluation and management for atypical chest pain. Overnight, the patient did well and did not have any acute events on telemetry. The patient was initially scheduled for cardiac stress test, however, stated that he had an allergy to adenosine and cannot have an exercise stress test secondary to degenerative joint disease. Troponins were trended and negative x3. Cardiology was consulted for recommendations. The patient was then taken for a Lexiscan cardiac stress test. The patient was on the schedule for cardiac catheterization post stress test, however, said that he was not going to remain n.p.o. and thus ate pizza, thus is awaiting further evaluation. Patient's chronic medical conditions were treated with his home medications. The patient remained hypertensive and thus losartan 25 mg was added to his regimen. The patient was continued on statin. The patient had a hemoglobin of 11.7. This appeared stable throughout his hospitalization and iron studies revealed likely anemia of chronic disease. The patient continued to do well throughout his hospitalization, ultimately proceeding to cardiac cath with the above results. Cardiology recommended medical management. This was relayed to the patient, including the need for establishment with a primary care physician and epic application coordinator in his hometown. Throughout his hospitalization, patient's vitals remained stable. Had no return of chest pain and was eager to be discharged home. Discharge plan was discussed with the patient, including need for followup. The patient voiced agreement and understanding of the discharge plan. All questions were answered appropriately. DISPOSITION: Stable. DISCHARGE INSTRUCTIONS: 1. Location: Home. 2. Diet: Heart healthy, low-sodium. 3. Activity: As tolerated. 4. Followup: The patient should establish and follow up with a primary care physician within 7 days of discharge as well as a epic application coordinator as directed. Job ID: [id number]
== END 2019-01-31 14:13 | disposition home or self-care (01) ==
LOC: ERS 18:09 → 2SW 19:30
PROVIDERS: ADMIT Family Medicine; ATTEND Family Medicine
PROC: 4A023N7 Measurement of Cardiac Sampling and Pressure, Left Heart, Percutaneous Approach (ICD-10-PCS; principal; 2019-01-31)
PROC: B2111ZZ Fluoroscopy of Multiple Coronary Arteries using Low Osmolar Contrast (ICD-10-PCS; 2019-01-31)
DX: I25.118 Atherosclerotic heart disease of native coronary artery with other forms of angina pectoris (principal); I25.2 Old myocardial infarction; I11.0 Hypertensive heart disease with heart failure; I50.9 Heart failure, unspecified; E78.00 Pure hypercholesterolemia, unspecified; E78.5 Hyperlipidemia, unspecified; D64.9 Anemia, unspecified; F17.210 Nicotine dependence, cigarettes, uncomplicated; G47.33 Obstructive sleep apnea (adult) (pediatric); E66.9 Obesity, unspecified; Z68.41 Body mass index [BMI] 40.0-44.9, adult; Z79.82 Long term (current) use of aspirin; Z79.899 Other long term (current) drug therapy; Z88.0 Allergy status to penicillin; Z88.5 Allergy status to narcotic agent; Z88.8 Allergy status to other drugs, medicaments and biological substances; Z95.5 Presence of coronary angioplasty implant and graft; Z99.89 Dependence on other enabling machines and devices
CPT/HCPCS: 36415; 71045; 78452; 80048; 80053; 80061; 82274; 82550; 82607; 82728; 82746; 83036; 83540; 83550; 83880; 84484; 85025; 93005; 93017; 93306; 93458; 94760; 96374; 96375; 99152; A9500; C1769; G0378; J1644; J2001; J2060; J2250; J2270; J2405; J2785; Q9967